=== PATIENT | male | born 1970 | race Caucasian/White ===

== ENCOUNTER 2016-11-08 19:01 | Emergency (ER) ==
[2016-11-08 19:11] VITALS: BP 140/95; TEMP 96.8; BMI 29.0
[2016-11-08] MEDS ORDERED: DILAUDID 1 MG/ML SYRINGE IVP STA (19:16)
[2016-11-08] MEDS ORDERED: SODIUM CHLORIDE 1,000 ML IV STA (19:16)
[2016-11-08] MEDS ORDERED: ZOFRAN 4 MG/2 ML IVP STA (19:16)
[2016-11-08] MEDS ORDERED: ANCEF 1 GM in SODIUM CHLORIDE 100 ML IV STA (19:18)
[2016-11-08] MEDS ORDERED: LIDOCAINE 1 % AMP 5 ML (SUTURES) SQ STA (19:18)
[2016-11-08] MEDS ORDERED: BOOSTRIX IM ONE (19:18)
--- NOTE | 2016-11-08 19:21 | ED.PDOC ---
General ED Provider: Dr. FERNANDO MARROQUIN Chief Complaint: Laceration Stated Complaint: Patient is a 46 year old male who states that while he was using a lens shaper grinder to cut a piece of metal, the lens shaper grinder came off the pipe and cut his left arm. Has some bleeding which he controlled with pressure. Did have severe pain. Time Seen by Physician: 19:24 Mode of Arrival: Walk-In Information Source: Patient Exam Limitations: No limitations Nursing and Triage Documentation Reviewed and Agree: Yes Skin Complaint Exam - Skin/Soft Tissue Complaint/Exam Location: Left forearm - Laceration/Abrasion/Hand Complaint/Exam Onset/Duration: 1 hour - Laceration/Upper Ext. Complaint/Exam Location of Injury: Left, Forearm Mechanism of Injury: Laceration Onset/Duration: 40 min Symptoms Are: Still present Initial Severity: Severe Current Severity: Severe Aggravating: Movement Alleviating: Compression Associated Signs and Symptoms: Denies: Fever, Chills, Erythema, Numbness, Tingling Related History: Reports: Occupational injury. Denies: Anticoagulant use Upper Extremity/Torso Picture: 1 - laceration Differential Diagnoses: Closed Fracture, Laceration, Tendon Laceration Review of Systems - Review Of Systems Constitutional: Reports: No symptoms Eyes: Reports: No symptoms Ears, Nose, Mouth, Throat: Reports: No symptoms Respiratory: Reports: No symptoms Cardiac: Reports: No symptoms GI: Reports: No symptoms : Reports: No symptoms Musculoskeletal: Reports: Muscle pain, Muscle stiffness Skin: Reports: Bruising, Other (Laceartion as in HPI) Neurological: Reports: Anxiety Endocrine: Reports: No symptoms Hematologic/Lymphatic: Reports: No symptoms All Other Systems: Reviewed and Negative Past Medical History - Past Medical History Previously Healthy: Yes Endocrine: Reports: None Cardiovascular: Reports: None Respiratory: Reports: None Hematological: Reports: None Gastrointestinal: Reports: None Genitourinary: Reports: None Neuro/Psych: Reports: None Musculoskeletal: Reports: None Cancer: Reports: None - Surgical History General Surgical History: Reports: None - Family History Family History: Reports: None - Social History Smoking Status: Current every day smoker, Light tobacco smoker Hx Substance Use: No Alcohol Screening: None - Immunizations Tetanus Shot up to Date: No Physical Exam - Physical Exam Appearance: Ill-appearing Ill-appearing: Severe Pain Distress: Severe Eyes: ZION, EOMI, Conjunctiva clear Neck: Supple Respiratory: Airway patent, Breath sounds clear, Breath sounds equal, Respirations nonlabored Musculoskeletal: Limited ROM (due to pain. 4th finger Flexion possible but with a lot of pain at the would. unable to clearly visualise the tendon. Rest of tendons on the left hand intact. ) Skin: Warm, Dry Neurological: Sensation intact, Motor intact, Reflexes intact, Alert, Oriented Psychiatric: Anxious Procedures - Laceration/Wound Repair Left Arm Wound Description: Linear Wound Length (cm): 7 Wound Width: 2.5 Wound Depth: 1.5 Wound Explored: Contaminated Wound Irrigated: Yes Wound Prep: Hibiclens, Scrub Anesthesia: Lidocaine Wound Repaired With: Sutures Suture Size and Type: 4.O Prolene Number of Sutures: 19 (18 running and 1 simple ) Layer Closure?: No Sterile Dressing Applied?: Yes Splint Applied?: No Sling Applied?: Yes Progress: Tolerated procedure fair need a lot of pain medications. Re-Evaluation - Re-Evaluation Time of Re-Evaluation: 21:00 Status: Improved Pain Level: 2 Appearance: NAD Physician Notification - Case Discussed Physician Notified: Dr Howell Time of Notification: 20:40 (Would like to see patient in the CLinic in the morning.) Critical Care Note - Critical Care Note Total Time (mins): 30 Comments: Pressure dressing applied. vital signs monitored, given IV Ancef. would extensively irrigated. Give I mg Dilaudid twice to control pain. Discussed with referring clinic -Ortho Apt Arranged for follow up in the morning. Referal made to reasses the 4th tendon which is painful at the would. Has at least a bruise of the tendon or a partial tear. Course - Course Hematology/Chemistry: 11/08/16 19:30 11/08/16 19:30 Orders, Labs, Meds: Lab Review 11/08/16 19:30 WBC 11.41 H RBC 4.65 L Hgb 15.1 Hct 42.0 MCV 90.3 MCH 32.5 H MCHC 36.0 H RDW Coeff of Sofya 13.1 Plt Count 224 Immature Gran % (Auto) 0.4 Neut % (Auto) 38.0 Lymph % (Auto) 53.2 H [place] % (Auto) 6.3 Eos % (Auto) 1.7 Baso % (Auto) 0.4 Immature Gran # (Auto) 0.1 Neut # 4.3 Lymph # 6.1 H [place] # 0.7 Eos # 0.2 Baso # 0.0 Sodium 140 Potassium 3.4 L Chloride 106 Carbon Dioxide 19 L Anion Gap 18.4 BUN 19 H Creatinine 1.35 H Estimated GFR (MDRD) 57.00 BUN/Creatinine Ratio 14.07 Glucose 123 H Calcium 9.4 Total Bilirubin 0.31 AST 20 ALT 23 Alkaline Phosphatase 69 Total Protein 7.8 Albumin 4.0 Globulin 3.8 Albumin/Globulin Ratio 1.05 Orders Category Date Time Status ED IV/MEDIPORT/POWERPORT .ONCE EMERGENCY 11/08/16 19:17 Active Splint [ED SPLINT APPLICATION] .ONCE EMERGENCY 11/08/16 21:07 Active CBC W/ AUTO DIFF Stat LAB 11/08/16 19:30 Completed COMPREHENSIVE METABOLIC PANEL Stat LAB 11/08/16 19:30 Completed 0.9 % Sodium Chloride [Saline Flush] MEDS 11/08/16 19:17 Discontinued 1 syr IVF PRN PRN Cefazolin Sodium [Ancef] MEDS 11/08/16 19:37 Discontinued 1 gm .ROUTE .STK-MED ONE Cefazolin Sodium [Ancef] 1 gm MEDS 11/08/16 19:18 Discontinued 0.9 % Sodium Chloride [Sodium Chloride] 100 ml IV ONCE Hydromorphone HCl [Dilaudid 1 mg/ml Syringe] MEDS 11/08/16 20:38 Discontinued 1 mg IM ONCE STA Hydromorphone HCl [Dilaudid 1 mg/ml Syringe] MEDS 11/08/16 19:16 Discontinued 1 mg IVP ONCE STA Lidocaine HCl/Pf [Lidocaine 1 % Amp 5 ml (Sutures)] MEDS 11/08/16 19:18 Discontinued 5 ml SQ ONCE STA Ondansetron HCl/Pf [Zofran 4 mg/2 ml] MEDS 11/08/16 19:16 Discontinued 4 mg IVP ONCE STA Sodium Chloride 0.9% [Sodium Chloride] 1,000 ml MEDS 11/08/16 19:16 Discontinued IV BOLUS Medications Discontinued Medications Generic Name Dose Route Start Last Admin Trade Name Freq PRN Reason Stop Dose Admin Hydromorphone HCl 1 mg 11/08/16 19:16 11/08/16 19:27 Dilaudid 1 Mg/Ml Syringe IVP 11/08/16 19:17 1 mg ONCE STA Administration Hydromorphone HCl 1 mg 11/08/16 20:38 11/08/16 20:39 Dilaudid 1 Mg/Ml Syringe IM 11/08/16 20:39 1 mg ONCE STA Administration Sodium Chloride 1,000 mls @ 1,000 mls/hr 11/08/16 19:16 11/08/16 19:28 Sodium Chloride IV 11/08/16 20:15 1,000 mls/hr BOLUS STA Administration Cefazolin Sodium 1 gm/ Sodium 100 mls @ 100 mls/hr 11/08/16 19:18 11/08/16 20 :02 Chloride IV 11/08/16 20:17 100 mls/hr ONCE STA Administration Lidocaine HCl 5 ml 11/08/16 19:18 11/08/16 20:02 Lidocaine 1 % Amp 5 Ml (Sutures) SQ 11/08/16 19:19 5 ml ONCE STA Administration Ondansetron HCl 4 mg 11/08/16 19:16 11/08/16 19:27 Zofran 4 Mg/2 Ml IVP 11/08/16 19:17 4 mg ONCE STA Administration Sodium Chloride 1 syr 11/08/16 19:17 11/08/16 19:27 Saline Flush IVF 1 syr PRN PRN Administration To flush IV Vital Signs: Temp Pulse Resp BP Pulse Ox 11/08/16 19:02 96.8 F L 94 H 22 140/95 H 98 Departure - Departure Time of Disposition: 21:01 Disposition: HOME SELF-CARE Discharge Problem: Laceration - injury Instructions: Laceration (ED), Tendon Laceration (ED) Condition: Fair Pt referred to PMD for follow-up: Yes (ORTHO in the morning. ) Additional Instructions: Follow up with Dr Howell in the morning at [facility] in [place] Take medications as prescribed. Nothing by mouth after midnight Prescriptions: Hydrocodone/Acetaminophen [[place] 5-325 Tablet] 1 tab PO Q6HR PRN #20 tablet PRN Reason: PAIN Cephalexin [Keflex] 500 mg PO Q8HR #30 capsule Ibuprofen [Motrin] 600 mg PO Q6H PRN #30 tablet PRN Reason: Analgesia Allergies/Adverse Reactions: Allergies No Known Allergies Allergy (Verified 11/08/16 19:11) Home Medications: Ambulatory Orders Cephalexin [Keflex] 500 mg PO Q8HR #30 capsule 11/08/16 Hydrocodone/Acetaminophen [[place] 5-325 Tablet] 1 tab PO Q6HR PRN #20 tablet 01/15 Ibuprofen [Motrin] 600 mg PO Q6H PRN #30 tablet 11/08/16 Disposition Discussed With: Patient, Family
[2016-11-08 19:35] LABS: BASOPHILS % (AUTO) 0.4 % (0.0-3.0); EOSINOPHILS # (AUTO) 0.2 K/ul (0.0-0.7); EOSINOPHILS % (AUTO) 1.7 % (0.0-7.0); HEMOGLOBIN 15.1 g/dl (14.0-18.0); IMMATURE GRANULOCYTE % (AUTO) 0.4 % (0.0-5.0); LYMPHOCYTES # (AUTO) 6.1 K/uL (0.60-3.4); LYMPHOCYTES % (AUTO) 53.2 (10.0-50.0); MEAN CORPUSCULAR HEMOGLOBIN 32.5 pg (27.0-31.0); MEAN CORPUSCULAR VOLUME 90.3 fl (80.0-94.0); MONOCYTES # (AUTO) 0.7 K/uL (0.4-2.0); MONOCYTES % (AUTO) 6.3 (0-10); NEUTROPHILS # (AUTO) 4.3 K/ul (2.0-6.9); PLATELET COUNT 224 10^3/uL (140-440); RED BLOOD COUNT 4.65 10^6/ul (4.70-6.10); WHITE BLOOD COUNT 11.41 K/ul (4.2-10.2)
[2016-11-08] MEDS ORDERED: ANCEF ONE (19:37)
[2016-11-08 19:54] LABS: ALBUMIN/GLOBULIN RATIO 1.05; ANION GAP 18.4; BILIRUBIN,TOTAL 0.31 mg/dL (0.00-1.20); BUN/CREATININE RATIO 14.07; CALCIUM 9.4 mg/dL (8.2-10.2); CREATININE 1.35 mg/dL (0.60-1.10); POTASSIUM 3.4 mmol/L (3.5-5.1); TOTAL PROTEIN 7.8 g/dL (6.4-8.2)
[2016-11-08] MEDS ORDERED: DILAUDID 1 MG/ML SYRINGE IM STA (20:38)
== END 2016-11-08 21:15 | disposition home or self-care (01) ==
LOC: ED 19:01
DX: S51.822A Laceration with foreign body of left forearm, initial encounter (principal); W31.89XA Contact with other specified machinery, initial encounter; F17.210 Nicotine dependence, cigarettes, uncomplicated
CPT/HCPCS: 36415; 80053; 85025; 96361; 96365; 96375; 99283